=== PATIENT | female | born 1970 | race Caucasian/White ===

== ENCOUNTER 2016-05-07 10:53 | Emergency (ER) | payer OTHER ==
[~2016-05-07] VITALS: Ht 162.6 cm; Wt 56.7 kg
[~2016-05-07 10:53] MED LIST: ADVIL PM 38 MG-1 TAB PO; ADVIL200 MG PO; ALBUTEROL0.09 MG/A1 INH; BENTYL20 MG PO; BUPROPION HCL150 M4 PO; BUSPIRONE HCL15 MG PO; CYCLOBENZAPRINE10 M2 PO; ENDOCET 325 MG-1 TA1 PO; FLEXERIL10 MG PO; GABAPENTIN300 M2 PO; GABAPENTIN300 MG PO; HYDROCODONE/ACE1 TA1 PO; LIDODERM 5% PAT1 PAT TOP; LYRICA225 MG PO; MACROBID100 MG PO; MEDROL DOSEPAK1 PAC PO; MELOXICAM15 MG PO; MOBIC 15MG15 MG PO; MOBIC15 M1 PO; MOBIC15 MG PO; MOBIC7.5 MG PO; NORCO 325 MG-51 TAB PO; PERCOCET 325 MG1 TA2 PO; PERCOCET 5-3251 EACH PO; PHENERGAN25 M1 PO; PROPRANOLOL HYD10 MG PO; PROVENTIL0.09 MG/A1 PO; SAVELLA TITRATI; SYMBICORT 16010.2 GM INH; TRAMADOL HCL50 MG PO; TRAZODONE HCL100 MG PO; TYLENOL WITH C1 EACH PO; VALTREX1 GM PO; VICODIN 5-3001 EACH PO; ZITHROMAX250 MG PO; ZOFRAN4 M1 PO
--- NOTE | 2016-05-07 11:13 | ED UPPER/LOWER EXTREMITY COMPL ---
History of Present Illness General Chief Complaint: Laceration Procedure Stated Complaint: LACS TO RT HAND Source: patient Exam Limitations: no limitations Vital Signs & Intake/Output Vital Signs & Intake/Output Vital Signs Date Time Temp Pulse Resp B/P Pulse O2 O2 Flow FiO2 Ox Delivery Rate 05/07 1106 97.0 100 20 140/88 98 Room Air Allergies Coded Allergies: NO KNOWN ALLERGIES (06/26/15) Reconcile Medications Budesonide/Formoterol Fumarate (Symbicort 160-4.5 Mcg Inhaler) 10.2 GM HFA.AER.AD 2 PUF INH BID copd Bupropion HCl (Bupropion HCl Sr) 150 MG TABLET.ER 1 TAB PO DAILY MENTAL HEALTH (Reported) Gabapentin 300 MG CAPSULE 1 CAP PO TID MENTAL HEALTH (Reported) Oxycodone HCl/Acetaminophen (Percocet 5-325 MG Tablet) 5 MG-325 MG TABLET 1 TAB PO Q6HR PAIN Triage Note: PT STATES SHE WAS CLEANING A VASE WHEN IT SHATTERED CAUSING MULTIPLE LACS TO RIGHT HAND Triage Nurses Notes Reviewed? yes Onset: Just prior to arrival Duration: hour(s): (1) Timing: no prior history Severity: moderate Severity Numbers: 6 Pain/Injury Location: Left: Forearm, Wrist, Hand. Method of Injury: laceration No Modifying Factors: none : No Patient currently breastfeeds: No HPI: Patient is a 45-year-old female presenting to the emergency department with chief complaint of multiple lacerations to the right hand, wrist, forearm after cleaning a glass vase. She reports that it broke while she was cleaning it. History of tetanus immunization. Pain moderate, burning in nature. Pain worse with palpation. Denies taking anything prior to arrival to help with pain. No numbness or tingling. Denies any nausea vomiting fevers or chills chest pain or shortness of breath. (ARTEMIO ELIZABETH,EMILIA) Past History Travel History Traveled to [place] past 21 day No Medical History Any Pertinent Medical History? 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 The nurse's notes also record a history of fibromyalgia which the patient has not advised me of Surgical History Surgical History: C-SECT Psychosocial History What is your primary language Burmese Tobacco Use: Quit >30 days ago ETOH Use: occasional use Illicit Drug Use: denies illicit drug use Family History Hx Contributory? No (EMILIA MONTANEZ) Review of Systems Review of Systems Constitutional: Reports: no symptoms. Comments Review of systems: See HPI, All other systems negative. Constitutional, no chills fever or weight loss HEENT: No visual changes no sore throat no congestion Cardiovascular: No chest pain Skin, no jaundice no rashes Respiratory: No dyspnea cough sputum or hemoptysis GI: No nausea no vomiting Muscle skeletal: no back pain, no neck pain, Neurologic: No numbness Psych: No stress anxiety Immunology: No splenectomy or history of AIDS (EMILIA MONTANEZ) Physical Exam Physical Exam General Appearance: well developed/nourished, no apparent distress, alert, awake , comfortable Comments: Well-developed well-nourished no apparent distress. HEENT: Atraumatic, extraocular motion intact Neck: Supple, no lymphadenopathy Back: Nontender Respiratory: No respiratory distress Extremities: No edema, full range of motion Skin: Several linear, well approximated, subcutaneous lacerations noted on both the dorsal and ventral aspect of the right hand, right wrist and right forearm. Neuro: Alert and oriented x3 Psych: Mood affect normal, normal memory normal judgment. Diagram Right Arm Front 1) 3 cm laceration 2) 2 cm laceration 3) 1cm superficial lac Right Arm Back 1) 2 cm flap laceration 2) 3 cm subq laceration (EMILIA MONTANEZ) Progress Differential Diagnosis: contusion, dislocation, tendon injury, foreign body in soft tissue Plan of Care: Patient will be sutured closed after x-ray returns. We wanted to rule out any foreign bodies in soft tissue. Patient given IM tetanus. Patient also given by mouth Percocet for pain. Diagnostic Imaging: Viewed by Me: Radiology Read. Discussed w/RAD: Radiology Read. Radiology Impression: small 1mm opacity noted on volar aspect of right wrist Comments: Patient given Percocet on arrival for pain. Patient will be irrigated, prepped with Betadine and sutured. Patient will fracture of foreign bodies. Patient form of imaging results. She'll return in 7-10 days for suture removal. Educated on signs and symptoms return earlier. (EMILIA MONTANEZ) Departure Departure Time of Disposition: 1243 Disposition: HOME OR SELF CARE Condition: Stable Clinical Impression Primary Impression: Laceration Referrals: MICHAEL SIMON MD (PCP/Family) Additional Instructions: Return in 7-10 days for suture removal. Return sooner if he develop any increased pain, redness or swelling or discharge or fevers. Take over-the- counter Motrin and Tylenol instructed for pain. Departure Forms: Customer Survey General Discharge Information Prescriptions: Current Visit Scripts Oxycodone HCl/Acetaminophen (Percocet 5-325 MG Tablet) 1 TAB PO Q6HR #10 TAB (EMILIA MONTANEZ) PA/RELIEF PHARMACIST Co-Sign Statement Statement: ED Attending supervision documentation- [] I saw and evaluated the patient. I have also reviewed all the pertinent lab results and diagnostic results. I agree with the findings and the plan of care as documented in the PA's/RELIEF PHARMACIST's documentation. [X] I have reviewed the ED Record and agree with the PA's/RELIEF PHARMACIST's documentation. [] Additions or exceptions (if any) to the PAs/RELIEF PHARMACIST's note and plan are summarized below: [] (JACINTA ROB,TERE) Procedures Laceration/Wound Repair Laceration/Wound Repair: Wound Location: upper extremity Wound's Depth, Shape: flap, linear, subcutaneous Wound Explored: clean, irrigated extensively, small chip removed from volar wrist lac Irrigated w/ Saline (ccs): 500 Betadine Prep? Yes Anesthesia: 1% lidocaine Suture Size/Type: 4:0, nylon Number of Sutures: 22 Layer Closure? No Date of Last Tetanus: 05/07/16 Tetanus Status: up to date Progress: Patient tolerated procedure well. (EMILIA MONTANEZ)
--- NOTE | 2016-05-07 12:07 | RADIOLOGY REPORT ---
EXAMINATION: XR HAND, RIGHT XR FOREARM, RIGHT CLINICAL INFORMATION: Lacerations on the right hand/finger and distal right forearm. Rule out foreign body. COMPARISON: None TECHNIQUE: AP and lateral views of the right forearm were obtained. AP and lateral views of the right hand. FINDINGS: Right forearm: Soft tissue swelling and laceration are evident at the right distal forearm over the radius. No radiodense foreign bodies are identified. No underlying fractures. 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 Elbow joint is unremarkable. Right hand: Soft tissue lacerations are suspected at the volar and dorsal aspects of the wrist. As seen on the lateral view, there is a punctate 1 mm radiodensity along the volar margin of the distal pole scaphoid which is of uncertain significance. There is a possible laceration at the index finger distal phalanx. No radiodense foreign bodies are present in the digits. There is degenerative arthritis the distal radioulnar joint. Joints otherwise relatively well-preserved. No acute fractures. IMPRESSION: 1. Punctate 1 mm radiodensity in the volar soft tissues at the wrist as seen on the lateral view of the hand, possibly a small foreign body. No additional foreign bodies are identified. 2. No acute osseous abnormalities. 3. 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
[2016-05-07] MEDS ORDERED: PERCOCET 5-3251 EACH PO (12:59)
[2016-05-07 14:11] VITALS: BP 132/85
== END 2016-05-07 14:11 ==
LOC: ERH 10:53
DX: S61.411A Laceration without foreign body of right hand, initial encounter (principal); S61.511A Laceration without foreign body of right wrist, initial encounter; S51.811A Laceration without foreign body of right forearm, initial encounter; W25.XXXA Contact with sharp glass, initial encounter
CPT/HCPCS: 73090-RT; 73130-RT; 90471; 90714

== ENCOUNTER 2016-05-22 09:01 | Emergency (ER) | payer OTHER ==
[~2016-05-22] VITALS: Ht 162.6 cm; Wt 56.7 kg
--- NOTE | 2016-05-22 09:54 | ED MVC/FALL/TRAUMA COMPLAINT ---
History of Present Illness General Chief Complaint: General Adult Stated Complaint: WRIST AND BUTT PAIN S/P FALL Source: patient Exam Limitations: no limitations Vital Signs & Intake/Output Vital Signs & Intake/Output Vital Signs Date Time Temp Pulse Resp B/P Pulse O2 O2 Flow FiO2 Ox Delivery Rate 05/22 1100 98.2 98 18 128/74 97 Room Air 05/22 0903 97.1 102 18 136/82 97 Room Air Allergies Coded Allergies: NO KNOWN ALLERGIES (06/26/15) Triage Note: 45 YEAR OLD FEMALE STATES THAT WHILE IN SHOWER SHE SLIPPED AND FELL, PT STATES THAT SHE HAD A LOT OF SOAP ON HER FEET. PT DENIES HITTING HER HEAD OR LOC. COMPLAINS OF PAIN R HAND, PT NOTED WITH SWELLING AND BRUISING, ALSO STATES THAT HER R HIP AND BUTTOCKS ARE SORE, AND HAS LOW BACK PAIN. ICE APPLIED TO R HAND. Triage Nurses Notes Reviewed? yes : No Patient currently breastfeeds: No HPI: 45 yo F PMH COPD, Chronic LBP, fibromyagia presenting with hand pain, back pain s/p fall. Patient was in shower this morning, was cleaning feet with soap, slipped and fell backwards landing on bilateral buttocks and right hand. Denies head/neck trauma/pain, LOC, N/V, focal neurologic Sx. C/O right hand pain/ ecchymosis/swelling, bilateral buttock and lower back pain, right hip pain. Ambulatory after the event, significant right hand pain prompting presentation to ED. (RAUDEL ROB,JOSE RAUL) Reconcile Medications Budesonide/Formoterol Fumarate (Symbicort 160-4.5 Mcg Inhaler) 10.2 GM HFA.AER.AD 2 PUF INH BID copd Oxycodone HCl/Acetaminophen (Percocet 5-325 MG Tablet) 5 MG-325 MG TABLET 1 TAB PO Q6HR PAIN (NATALIE MARSH DO) Past History Travel History Traveled to [place] past 21 day No Medical History Any Pertinent Medical History? 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 The nurse's notes also record a history of fibromyalgia which the patient has not advised me of Isolation History: Standard Tetanus Vaccine: 05/07/16 Surgical History Surgical History: C-SECT Psychosocial History What is your primary language Swedish Tobacco Use: Current Daily Use Daily Tobacco Use Amount/Type: => 5 Cigarettes daily ETOH Use: denies use Illicit Drug Use: denies illicit drug use Family History Hx Contributory? Yes (RAUDEL ROB,JOSE RAUL) Review of Systems Review of Systems Constitutional: Reports: no symptoms. Eyes: Reports: no symptoms. Ears, Nose, Throat, Mouth: Reports: no symptoms. Respiratory: Reports: no symptoms. Cardiovascular: Reports: no symptoms. Gastrointestinal/Abdominal: Reports: no symptoms. Genitourinary: Reports: no symptoms. Musculoskeletal: Reports: see HPI, back pain, joint pain, joint swelling. Denies: neck pain. Skin: Reports: no symptoms. Neurological/Psychological: Reports: no symptoms. All Other Systems: Reviewed and Negative (RAUDEL ROB,JOSE RAUL) Physical Exam Physical Exam General Appearance: well developed/nourished, no apparent distress, alert, awake Head: atraumatic Eyes: Bilateral: normal appearance, PERRL, EOMI. Ears, Nose, Throat, Mouth: moist mucous membrane Neck: normal inspection, supple, full range of motion, no midline tenderness Respiratory: normal breath sounds, chest non-tender, no respiratory distress, lungs clear Cardiovascular: regular rate/rhythm, normal peripheral pulses Peripheral Pulses: 2+ radial (R), 2+ radial (L), 2+ dorsalis pedis (R), 2+ dorsalis pedis (L) Gastrointestinal: normal bowel sounds, soft, non-tender Back: normal inspection, normal range of motion Extremities: limited range of motion, pain with movement Neurologic/Psych: awake, alert, oriented x 3 Skin: intact Comments: Neck: No midline c-spine TTP with full ROM Right wrist: Bony TTP over ulnar wrist with mild edema and ecchymosis, ROM limited by pain, no motor or sensory deficits, No TTP over anatomic snuff box, 2 + radial pulses and good cap refill x5 Right Hand: Ecchymosis/edema over dorsum of 3rd/4th MCP joints, ROM limited by pain, no motor or sensory deficits Back: TTP over bilateral gluteal muscles with mild mildline sacral bony TTP, no ecchymosis or external signs of injury, normal ROM with mild pain Right Hip: TTP over lateral hip with full ROM Core Measures ACS in differential dx? No Severe Sepsis Present: No Septic Shock Present: No (RAUDEL ROB,JOSE RAUL) Progress Differential Diagnosis: C/T/L spine injury, ext injury, pelvis injury Plan of Care: Orders Procedure Date/time Status XRY-WRIST COMPLETE-RIGHT 05/22 918 Active XRY-LUMBAR SPINE ONE VIEW 05/22 918 Active XRY-HIP 2-3 VIEWS, RIGHT 05/22 918 Active XRY-HAND, 3 View RIGHT 05/22 918 Active Physician MDM: 45 yo F presenting with right hip, lower back, right hand/wrist pain s/p mechanical fall in shower. VSS, trauma exam as above. DDx: Wrist fracture, Hand fracture, soft tissue injury, less likely lumobsacral fracutre, right hip fracture. Percocet given with improvement in pain. Right wrist/hand XR without acute fracture/dislocations. Lumbar, pelvis, right hip XR without acute fx/disclocation. On re-examination pain improved, reassured by negative imaging, ambulatory with even gait at baseline. D/Prasanth with return precautions, PMD f/u as needed. D/W Dr. Marsh. (RAUDEL ROB,JOSE RAUL) Departure Departure Disposition: HOME OR SELF CARE Condition: Stable Clinical Impression Primary Impression: Back pain Qualifiers: Back pain location: low back pain Chronicity: acute Back pain laterality: midline Sciatica presence: without sciatica Qualified Code: M54.5 - Low back pain Secondary Impressions: Fall Qualifiers: Encounter type: initial encounter Qualified Code: W19.XXXA - Unspecified fall, initial encounter Hand pain Qualifiers: Laterality: right Qualified Code: M79.641 - Pain in right hand Hip pain, acute Qualifiers: Laterality: right Qualified Code: M25.551 - Pain in right hip Referrals: MICHAEL SIMON MD (PCP/Family) Additional Instructions: Take ibuprofen or tylenol as needed for pain. Follow up with your primary care physician. Return to the ED for any new, worsening, or concerning symptoms. Departure Forms: Customer Survey General Discharge Information (JOSE RAUL STARKS MD) PA/GARDENING MANAGER Co-Sign Statement Statement: ED Attending supervision documentation- [] I saw and evaluated the patient. I have also reviewed all the pertinent lab results and diagnostic results. I agree with the findings and the plan of care as documented in the PA's/GARDENING MANAGER's documentation. [x] I have reviewed the ED Record and agree with the PA's/GARDENING MANAGER's documentation. [] Additions or exceptions (if any) to the PAs/GARDENING MANAGER's note and plan are summarized below: [] (NATALIE MARSH DO
[2016-05-22 11:00] VITALS: BP 128/74
--- NOTE | 2016-05-22 11:08 | RADIOLOGY REPORT ---
EXAMINATION: XR HAND, RIGHT XR WRIST, RIGHT CLINICAL INFORMATION: Pain status post fall. COMPARISON: Radiographs 05/07/2016. TECHNIQUE: 3 views of the right hand. 4 views of the right wrist. FINDINGS: No acute fracture or dislocation. No radiopaque foreign body. Dorsal soft tissue swelling. Ulnar negative variance with prominent osteoarthritis of the distal radioulnar joint. IMPRESSION: Normal alignment. No fracture. Osteoarthritis of the distal radioulnar joint. No significant change. Dorsal soft tissue swelling.
--- NOTE | 2016-05-22 11:14 | RADIOLOGY REPORT ---
EXAMINATION: XR LUMBAR SPINE XR PELVIS AND HIP, RIGHT CLINICAL INFORMATION: Pain after a fall. COMPARISON: Lumbar spine 08/09/2015. TECHNIQUE: AP and lateral views of the lumbar spine. AP radiograph of the pelvis. AP and frog-lateral views of the right hip. FINDINGS: LUMBAR SPINE: Normal alignment and lumbar lordosis with moderate degenerative disc disease at L5-S1, not significantly changed. No fracture. PELVIS/RIGHT HIP: No acute fracture or dislocation. No significant joint space narrowing. IMPRESSION: Moderate L5-S1 degenerative disc disease. No fracture. No significant change. No acute fracture or dislocation of the pelvis/right hip.
== END 2016-05-22 12:25 ==
LOC: ERH 09:01
DX: M54.5 Low back pain (principal); M25.551 Pain in right hip; M79.641 Pain in right hand; W18.2XXA Fall in (into) shower or empty bathtub, initial encounter; Y93.E1 Activity, personal bathing and showering
CPT/HCPCS: 72020; 73110-RT; 73130-RT; 73502-RT

== ENCOUNTER 2016-07-28 13:44 | Emergency (ER) | payer OTHER ==
[~2016-07-28] VITALS: Ht 162.6 cm; Wt 56.7 kg
--- NOTE | 2016-07-28 15:00 | ED GENERAL ADULT ---
History of Present Illness General Chief Complaint: Hand or Wrist Injury Stated Complaint: MULTIPLE LACERATIONS TO RT HAND Source: patient Exam Limitations: no limitations Vital Signs & Intake/Output Vital Signs & Intake/Output Vital Signs Date Time Temp Pulse Resp B/P B/P Pulse O2 O2 Flow FiO2 Mean Ox Delivery Rate 07/28 1550 98.9 91 20 105/72 91 Room Air 07/28 1354 97.7 122 22 104/78 98 Room Air Allergies Coded Allergies: NO KNOWN ALLERGIES (06/26/15) Reconcile Medications Budesonide/Formoterol Fumarate (Symbicort 160-4.5 Mcg Inhaler) 10.2 GM HFA.AER.AD 2 PUF INH BID copd Hydrocodone/Acetaminophen (Vicodin 5-300 MG Tablet) 5 MG-300 MG TABLET 1 TAB PO BID PRN PAIN Oxycodone HCl/Acetaminophen (Percocet 5-325 MG Tablet) 5 MG-325 MG TABLET 1 TAB PO Q6HR PAIN Triage Note: 46 Y/O FEMALE BIBA FROM HOME FOR MULTIPLE LACERATIONS TO RT HAND. PT STS SHE RECIECVED BAD NEW TODAY THAT HER BF HAS H[place]KINS [place] AND ALSO GIRLFRIEND STADYING WITH HER HAD SOMETHING AT HER HOUSE SHE SHOULD NOT HAVE (PT WANTED THIS INFORMATION NOT TO BE NOTED) AMD BOTH INCIDENTS UPSET HER SO THAT SHE STARTED TO PUNVH GLASS FIXTURE AT HOME AND SUSTAINED LAC TO RT HAND. PT ARRIVES A/O X3 AND LAC IS DRESSED AND PT STS PAIN OF 8/10. PT DENIES SI/HI AT PRESENT AND STS "IT WAS MY OWN STUPIDITY AND BEEN PISSED". PT IS TACHY AT 122 BUT VITALS ARE OK AND PT DENIES ANY OTHER COMPLAINTS Triage Nurses Notes Reviewed? yes Onset: Abrupt Duration: hour(s): (3) Timing: recent history Injury Environment: home Severity: moderate Severity Numbers: 8 Modifying Factors: Improves With: immobilization. Worsens With: movement. HPI: Patient is a 46 old female presenting to the emergency department with chief complaint of multiple lacerations on her right hand after punching a glass vase. Patient reports that she was in an argument with someone on the phone and was very angry afterwards and she punched the glass face which broke on her hand. She is up-to-date with her tetanus. Pain is moderate, turning in nature worse with palpation. The police showed up at her house and told her to come to the hospital for evaluation. Patient denying any numbness or tingling. Denies any lightheadedness or dizziness. Denies being on any blood thinners. Denies taking anything for pain prior to arrival. Denies any other injuries. Past History Travel History Traveled to [place] past 21 day No Medical History Any Pertinent Medical History? see below for history Neurological: NONE EENT: NONE Cardiovascular: NONE Respiratory: COPD Gastrointestinal: NONE Hepatic: NONE Renal: NONE Musculoskeletal: chronic back pain, fibromyalgia Psychiatric: depression Endocrine: NONE Blood Disorders: NONE Cancer(s): NONE MACHINE SET UP/Reproductive: NONE Other Medical Hx: Patient initially denied any past medical history but then with prompting admitted to COPD chronic back pain and sciatica. The nurse's notes also record a history of fibromyalgia which the patient has not advised me of Tetanus Vaccine: 05/07/16 Surgical History Surgical History: C-SECT Psychosocial History What is your primary language Danish Tobacco Use: Current Daily Use Daily Tobacco Use Amount/Type: => 5 Cigarettes daily ETOH Use: denies use Illicit Drug Use: denies illicit drug use Family History Hx Contributory? No Review of Systems Review of Systems Constitutional: Reports: no symptoms. Comments Review of systems: See HPI, All other systems negative. Constitutional, no chills fever or weight loss HEENT: No visual changes no sore throat no congestion Cardiovascular: No chest pain ,palpitation Skin, no jaundice no rashes Respiratory: No dyspnea cough sputum or hemoptysis GI: No nausea no vomiting Muscle skeletal: no back pain, no neck pain, Neurologic: No numbness no confusion Psych: positive stress and anxiety Heme/endocrine: No bruising no bleeding no polyuria or polydipsia Immunology: No splenectomy or history of AIDS Physical Exam Physical Exam General Appearance: well developed/nourished, no apparent distress, alert, awake , comfortable Comments: Well-developed well-nourished person in no acute distress HEENT: Pupils equally round and reactive to light and accommodation. Nose is atraumatic. Neck: Normal inspection Back: Nontender Cardiovascular: Regular rate and rhythms no murmurs rubs or gallops, normal JVP Respiratory: Chest nontender. No respiratory distress.breath sounds clear to auscultation bilaterally Extremity: No edema, radial pulses are 2+ bilaterally. Neuro: Alert oriented x3, motor sensory normal and upper extremities bilaterally. Skin: Several lacerations over the dorsum of the right hand, the right wrist, right fingers. Tender to palpation over these areas. No foreign body appreciated. First laceration is at the distal radius approximately 2 cm in size, flap-like, well approximating and subcutaneous. The laceration is on the proximal aspect of the dorsum of the right hand approximately 6 cm in length, well approximating and subcutaneous. A third laceration is noted over the right MCP joint proximally 2 cm. Another 1 cm noted on the PIP joints of the second third and fourth digits on the dorsal aspect. Another V-shaped laceration noted on the ventral aspect of the wrist, well approximating and subcutaneous. Another laceration noted on the ventral aspect of the right wrist at the base of the distal ulna. This laceration is approximately 1 cm, V-shaped, subcutaneous. All lacerations are well approximating. All lacerations have no foreign body appreciated after irrigation and inspection. Psych: Mood and affect is normal, memory and judgment is normal. Core Measures ACS in differential dx? No CVA/TIA Diagnosis: No Severe Sepsis Present: No Septic Shock Present: No Diagram Hands, Palmar: 1) 4 cm laceration 2) 2 Centimeter laceration Hands, Dorsum: 1) 6 cm laceration. 2) 3 cm laceration 3) 1 cm laceration 4) 1 Centimeter laceration 5) 1 Centimeter laceration 6) 1 cm laceration Progress Differential Diagnoses I considered the following diagnoses in my evaluation of the patient: Laceration, foreign body in soft tissue, abrasion, skin avulsion, generalized anxiety disorder Plan of Care: Orders Procedure Date/time Status XRY-WRIST COMPLETE-RIGHT 07/28 1506 Active XRY-HAND, 3 View RIGHT 07/28 1506 Active Current Medications Sig/Yelitza Start time Last Medication Dose Stop Time Status Admin Acetaminophen/ 1 TAB ONCE ONE 07/28 1515 AC Hydrocodone Bitart 07/28 1516 (Vicodin) Lidocaine 20 ML ONCE ONE 07/28 1515 AC (Lidocaine 1%) 07/28 1516 Diagnostic Imaging: Viewed by Me: Radiology Read. Discussed w/RAD: Radiology Read. Initial ED EKG: none Departure Departure Time of Disposition: 1643 Disposition: HOME OR SELF CARE Condition: Stable Clinical Impression Primary Impression: Laceration Referrals: MICHAEL SIMON MD (PCP/Family) Additional Instructions: Return in 2 days for wound check, keep wounds clean, keep them dry. We applied bacitracin here in the emergency department. Do not continue to apply this at home. Take Motrin or Tylenol [id number] as directed to help with pain. Return for any worsening redness fevers swelling or concern. Although x-rays did not see any foreign bodies within the soft tissue of your x-ray there is always the chance for retained foreign body. Departure Forms: Customer Survey General Discharge Information Prescriptions: Current Visit Scripts Hydrocodone/Acetaminophen (Vicodin 5-300 MG Tablet) 1 TAB PO BID PRN PAIN #10 TAB Procedures Laceration/Wound Repair Laceration/Wound Repair: Wound Location: upper extremity (right hand) Wound's Depth, Shape: linear, subcutaneous Wound Length (cm): 2 (multiple 2 cm lacerations) Wound Explored: clean, no foreign body removed, irrigated extensively Irrigated w/ Saline (ccs): 1000 Betadine Prep? Yes Anesthesia: 1% lidocaine Volume Anesthetic (ccs): 8 Wound Debrided: minimal Wound Repaired With: sutures Suture Size/Type: 5:0, nylon Number of Sutures: 29 Layer Closure? No Tetanus Status: up to date Progress: She tolerated procedure well. Minimal blood loss. Use approximately 2 mL of lidocaine in each laceration. Lacerations were closed with nylon, 5-0, simple interrupted sutures. Critical Care Note Critical Care Note Critical Care Time: non-applicable
--- NOTE | 2016-07-28 15:34 | RADIOLOGY REPORT ---
EXAMINATIONS: WRIST 4 VIEWS, RIGHT AND HAND 3 VIEWS, RIGHT CLINICAL INFORMATION: Punched glass. Multiple lacerations. Pain. COMPARISON: 05/22/2016. TECHNIQUE: AP, lateral, oblique, scaphoid views of the right wrist are provided. PA, lateral, oblique views of the right hand were obtained. FINDINGS: There are no fractures or dislocations. There is no displacement of the pronator fat pad. The proximal carpal row is intact. There is ulnar minus variant. 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 There are no discernible radiopaque foreign bodies. There is mild soft tissue swelling to the dorsum of the distal forearm. IMPRESSION: No evidence for acute osseous injury. Mild soft tissue swelling. Stable chronic changes to the right wrist. No radiopaque foreign bodies.
[2016-07-28] MEDS ORDERED: VICODIN 5-3001 EACH PO (16:45)
[2016-07-28 17:02] VITALS: BP 105/72
== END 2016-07-28 17:06 ==
LOC: ERH 13:44
DX: S61.411A Laceration without foreign body of right hand, initial encounter (principal); W25.XXXA Contact with sharp glass, initial encounter; Y92.9 Unspecified place or not applicable; Y93.9 Activity, unspecified
CPT/HCPCS: 73110-RT; 73130-RT

== ENCOUNTER 2017-09-05 09:14 | Emergency (ER) | payer OTHER ==
[~2017-09-05] VITALS: Ht 162.6 cm; Wt 51.3 kg
[~2017-09-05 09:14] MED LIST changes: +ALPRAZOLAM0.5 M4 PO; +METRONIDAZOLE500 M1 PO; +PERCOCET 7.5-31 EACH PO
[2017-09-05 09:31] VITALS: BP 116/55
--- NOTE | 2017-09-05 11:05 | ED PSYCHIATRIC COMPLAINT ---
History of Present Illness General Chief Complaint: General Adult Stated Complaint: FEELS SHAKY XS 3 DAYS ANIXETY Source: patient Exam Limitations: no limitations Vital Signs & Intake/Output Vital Signs & Intake/Output Vital Signs Date Time Temp Pulse Resp B/P B/P Pulse O2 O2 Flow FiO2 Mean Ox Delivery Rate 09/05 0931 95.5 95 20 116/55 99 Room Air Allergies Coded Allergies: NO KNOWN ALLERGIES (06/26/15) Triage Note: C/O ALL OVER SHAKINESS AND NAUSEA X 3 DAYS, STATES SHE IS FEELING VERY ANXIOUS. TEARY, STATES SHE IS GOING THROUGH A LOT OF FINANCIAL PROBLEMS. DENIES SI OR HI. PMH: ANXIETY AND DEPRESSION Triage Nurses Notes Reviewed? yes Onset: Gradual Duration: getting worse Timing: recent history Severity: severe Severity Numbers: 10 HPI: Patient is a 47-year-old female with a past medical history of COPD and anxiety compliant with Wellbutrin who presents emergency room with a four-day history of worsening anxiety patient states that she is gone through extensive family issues in which her significant other is being treated for cancer patient has severe financial issues and states her anxiety is "through the roof" patient denies any suicide or homicidal ideation denies any illicit drug use or alcohol use. Patient has not been evaluated by a psychiatrist and gets prescribed Wellbutrin through her primary care doctor. Denies any auditory or visual hallucinations. Patient has associated symptoms nausea and tremors. Denies any fever chills chest pain arm pain jaw pain. (Itzel ELIZABETH,Mao) Reconcile Medications Alprazolam 0.5 MG TABLET 1 TAB PO TIDPRN ANXIETY (Reported) Budesonide/Formoterol Fumarate (Symbicort 160-4.5 Mcg Inhaler) 10.2 GM HFA.AER.AD 2 PUF INH BID copd Hydrocodone/Acetaminophen (Vicodin 5-300 MG Tablet) 5 MG-300 MG TABLET 1 TAB PO BID PRN PAIN Hydroxyzine Pamoate (Vistaril) 50 MG CAPSULE 1 CAP PO TID PRN ANXIETY Metronidazole 500 MG TABLET 1 TAB PO TID YEAST (Reported) Ondansetron HCl (Zofran) 4 MG TABLET 1 TAB PO Q6-8P PRN NAUSEA Oxycodone HCl/Acetaminophen (Percocet 7.5-325 MG Tablet) 7.5 MG-325 MG TABLET 1 TAB PO 4 TIMES/DAY PAIN (Reported) Oxycodone HCl/Acetaminophen (Percocet 5-325 MG Tablet) 5 MG-325 MG TABLET 1 TAB PO 4 TIMES/DAY PRN PAIN Oxycodone HCl/Acetaminophen (Percocet 5-325 MG Tablet) 5 MG-325 MG TABLET 1 TAB PO Q6HR PAIN (Tl Grijalva DO) Past History Travel History Traveled to [place] past 21 day No Medical History Any Pertinent Medical History? 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 The nurse's notes also record a history of fibromyalgia which the patient has not advised me of Tetanus Vaccine: 05/07/16 Surgical History Surgical History: C-SECT Psychosocial History What is your primary language Polish Tobacco Use: Current Daily Use Daily Tobacco Use Amount/Type: => 5 Cigarettes daily ETOH Use: denies use Family History Hx Contributory? No (Mao Donato) Review of Systems Review of Systems Constitutional: Reports: no symptoms. EENTM: Reports: no symptoms. Respiratory: Reports: no symptoms. Cardiovascular: Reports: no symptoms. GI: Reports: no symptoms. Genitourinary: Reports: no symptoms. Musculoskeletal: Reports: no symptoms. Skin: Reports: no symptoms. Neurological/Psychological: Reports: see HPI, anxiety, depressed. Hematologic/Endocrine: Reports: no symptoms. Immunologic/Allergic: Reports: no symptoms. All Other Systems: Reviewed and Negative (Mao Donato) Physical Exam Physical Exam General Appearance: anxious, mild distress Head: atraumatic Eyes: Bilateral: normal appearance, PERRL, EOMI. Ears, Nose, Throat: normal pharynx, normal ENT inspection, hearing grossly normal Neck: normal inspection, supple Respiratory: normal breath sounds, chest non-tender Cardiovascular: regular rate/rhythm Gastrointestinal: normal bowel sounds, soft, non-tender Neurological/Psychiatric: awake, alert, anxious Appearance/Memory/Insight: appropriate appearance, appropriate insight Behavoir/Eye Contact/Speech: cooperative, increased rate of speech, good eye contact Thoughts/Hallucinations: normal thought pattern, no apparent hallucination Skin: intact, normal color, warm/dry SAD PERSONS Done? patient not suicidal (Mao Donato) Progress Differential Diagnosis: drug intoxication, drug overdose, drug withdrawal, electrolyte abnormality, encephalitis, hypoglycemia, hypothyroidism, IC hem/mass /tumor, meningitis Plan of Care: Patient initial examination appears to be anxious and in distress due to her stressors at home. Patient is not a harm to herself or others no signs of intoxication is at capacity to make decisions for herself. Patient was offered inpatient crisis consultation or outpatient IOP where she requested outpatient IOP, an appointment was made for her this Sunday 8:30 at [facility] patient will make the appointment patient will be given Vistaril and Zofran for her symptoms. Patient had no questions on discharge and agrees with plan (Mao Donato) Departure Departure Disposition: HOME OR SELF CARE Condition: Stable Clinical Impression Primary Impression: Anxiety Referrals: Yumiko Kahn APRN (PCP/Family) Additional Instructions: As discussed begin the prescription of Zofran for nausea Vistaril for anxiety, please go to establish [facility] appointment this Sunday at 8:30, prescription is waiting at [facility]. If symptoms worsen or if YOU develop new concerning symptom return to emergency room Departure Forms: Customer Survey General Discharge Information Prescriptions: Current Visit Scripts Hydroxyzine Pamoate (Vistaril) 1 CAP PO TID PRN ANXIETY #15 CAP Ondansetron HCl (Zofran) 1 TAB PO Q6-8P PRN NAUSEA #10 TAB (Mao Donato) PA/ELECTRIC HOIST OPERATOR Co-Sign Statement Statement: ED Attending supervision documentation- [] I saw and evaluated the patient. I have also reviewed all the pertinent lab results and diagnostic results. I agree with the findings and the plan of care as documented in the PA's/ELECTRIC HOIST OPERATOR's documentation. [x] I have reviewed the ED Record and agree with the PA's/ELECTRIC HOIST OPERATOR's documentation. [] Additions or exceptions (if any) to the PAs/ELECTRIC HOIST OPERATOR's note and plan are summarized below: [] (Tl Grijalva DO)
[2017-09-05] MEDS ORDERED: ZOFRAN4 M2 PO (11:31)
[2017-09-05] MEDS ORDERED: VISTARIL50 M1 PO (11:31)
== END 2017-09-05 11:44 ==
LOC: ERH 09:14
DX: F41.9 Anxiety disorder, unspecified (principal)
CPT/HCPCS: J3101

== ENCOUNTER → 2017-10-02 | Day surgery (SDC) | payer OTHER ==
--- NOTE | 2017-09-29 11:59 | History & Physical Pre-Op ---
General Information and HPI History of Present Illness: Yissel is a 47-year-old female with a long-standing and worsening complaint of a painful tailor's bunion right foot. The patient has undergone an extended course of conservative care, including shoe gear and activity modification, rest , immobilization and courses of NSAIDs. None of this is yielded her any significant relief. The patient presents today for preoperative surgical consultation. Allergies/Medications Allergies: Coded Allergies: No Known Allergies (09/27/17) Home Med list Alprazolam 0.5 MG TABLET 1 TAB PO TIDPRN ANXIETY (Reported) Budesonide/Formoterol Fumarate (Symbicort 160-4.5 Mcg Inhaler) 10.2 GM HFA.AER.AD 2 PUF INH BID copd Hydrocodone/Acetaminophen (Vicodin 5-300 MG Tablet) 5 MG-300 MG TABLET 1 TAB PO BID PRN PAIN Hydroxyzine Pamoate (Vistaril) 50 MG CAPSULE 1 CAP PO TID PRN ANXIETY Metronidazole 500 MG TABLET 1 TAB PO TID YEAST (Reported) Ondansetron HCl (Zofran) 4 MG TABLET 1 TAB PO Q6-8P PRN NAUSEA Oxycodone HCl/Acetaminophen (Percocet 7.5-325 MG Tablet) 7.5 MG-325 MG TABLET 1 TAB PO 4 TIMES/DAY PAIN (Reported) Oxycodone HCl/Acetaminophen (Percocet 5-325 MG Tablet) 5 MG-325 MG TABLET 1 TAB PO 4 TIMES/DAY PRN PAIN Oxycodone HCl/Acetaminophen (Percocet 5-325 MG Tablet) 5 MG-325 MG TABLET 1 TAB PO Q6HR PAIN Past History Medical History Neurological: NONE EENT: NONE Cardiovascular: NONE Respiratory: COPD Gastrointestinal: NONE Hepatic: NONE Renal: NONE Musculoskeletal: chronic back pain, fibromyalgia Psychiatric: anxiety Endocrine: NONE Blood Disorders: NONE Cancer(s): NONE 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 The nurse's notes also record a history of fibromyalgia which the patient has not advised me of Tetanus Vaccine: 05/07/16 Surgical History Pertinent Surgical History: C-SECT Review of Systems Review of Systems: Unremarkable except for that noted in history of present illness.
[~2017-10-02] VITALS: Ht 162.6 cm; Wt 52.2 kg
[~2017-10-02] MED LIST changes: +BACLOFEN10 M1 PO; +GABAPENTIN400 M2 PO; +IBUPROFEN800 M1 PO; +PROAIR HFA8.5 GM INH; +VISTARIL50 M1 PO; +ZOFRAN4 M2 PO
--- NOTE | 2017-10-02 09:24 | Operative Report ---
Operative/Inv Procedure Report Surgery Date: 10/02/17 Name of Procedure: 1 tailor's bunionectomy right foot Pre-Operative Diagnosis: 1 tailor's bunion right foot Post-Operative Diagnosis: The same Estimated Blood Loss: scant Surgeon/Solar Energy Installation Manager: Kiran Katz DPM Anesthesia: moderate sedation, block Operative/Procedure Note Note: After obtaining informed consent the patient was brought to the operating room and placed on the operating table in the supine position. The patient was then securely fastened to the operating table utilizing safety belt. After administration of IV sedation, 10 mL of 0.5% Marcaine plain was infiltrated about the patient's right ankle. A well-padded ankle tourniquet was placed about the patient's right lower extremity. 2 g of Ancef were delivered intravenously times one dose. The right foot and ankle within scrubbed, prepped and draped in usual aseptic manner. The right lower extremity was elevated to examine to limb, at which point the ankle tourniquet was inflated to 250 mmHg. Attention directed dorsal lateral aspect of the right foot, where a 4 cm linear incision was made overlying the distal fifth metatarsal. The dissection was then carried down to subtenons tissues. All vital neurovascular structures were identified protected. A linear capsulotomy was then performed exposing the lateral eminence. This was then removed with a sagittal bone saw. The wound was then irrigated with copious amounts normal sterile saline. The capture structures were reapproximated with 4-0 Vicryl and the subtenons tissues reapproximated 4-0 Vicryl. The skin edges were reapproximated with 4-0 nylon. Incision was dressed with Xeroform, 4 x 4's, Kerlix and an Gavin wrap. The patient was noted to tolerate both procedure and anesthesia well and the patient was transported from the operating room to recovery with vital signs stable best assess intact all digits right foot.
== END ==
LOC: STS 03:07
DX: M21.621 Bunionette of right foot (principal); J44.9 Chronic obstructive pulmonary disease, unspecified; F17.210 Nicotine dependence, cigarettes, uncomplicated; M19.90 Unspecified osteoarthritis, unspecified site; M79.7 Fibromyalgia
CPT/HCPCS: 81025; J0690; J2001; J2250; J3490